=== PATIENT | male | born 1975 | race Caucasian/White ===

== ENCOUNTER 2016-02-21 03:17 | Emergency (ER) | payer MEDICAID ==
[~2016-02-21] VITALS: Ht 175.3 cm; Wt 68.5 kg
== END 2016-02-21 07:04 | disposition left against medical advice (07) ==
LOC: ER 03:22
DX: H92.01 Otalgia, right ear (principal); Z53.21 Procedure and treatment not carried out due to patient leaving prior to being seen by health care provider